=== PATIENT | male | born 1955 | race Caucasian/White ===

== ENCOUNTER → 2017-06-27 | Outpatient (CLI) | payer OTHER ==
[~2017-06-27] MED LIST: ACET-2031 PO; Aspirin PO; BIS10S PR; BONIVA PO; CELE-1 PO; CHOL200021 PO; CYC10 PO; DIA5 PO; DIOVAN/HCTZ PO; FLUO40CA76 PO; HYDR-389 PO; IBAN2.5T2 PO; LAMO100T56 PO; LOR1 PO; LOR7.5/325 PO; MAGN-40 PO; MISO100T42 PO; OXYC1TAB54 PO; OXYC5TAB65 PO; Oxycodone Hcl PO; RIV10 PO; SER50 PO; ST.1POWD PO; TRA50 PO; VALS1TAB63 PO; VALS40TA6 PO; [UNRECOGNIZED DRUG - CODE] PO; [UNRECOGNIZED DRUG - CODE] PO; [UNRECOGNIZED DRUG - CODE] PO; [UNRECOGNIZED DRUG - CODE] PO; [UNRECOGNIZED DRUG - OTHER] PO
--- NOTE | 2017-06-27 09:08 | EKG ---
FACILITY: [facility] PATIENT NAME: EDISON VALDIVIA : [id number] MR: [id number] V: [id number] EXAM DATE: ORDERING PHYSICIAN: BENNIE GILLIAM TECHNOLOGIST: BRAULIO Sanders Reason : PREOP-FOOT Blood Pressure : / mmHG Vent. Rate : 067 BPM Atrial Rate : 067 BPM P-R Int : 194 ms QRS Dur : 100 ms QT Int : 404 ms P-R-T Axes : 046 052 054 degrees QTc Int : 426 ms Normal sinus rhythm Normal ECG When compared with ECG of 24-FEB-2016 14:39, No significant change was found Confirmed by ALEJANDRINA MEADOWS ([id number]) on 06/27/2017 3:53:16 PM Referred By: MANE Confirmed By:ALEJANDRINA MEADOWS
[2017-06-27 09:35] LABS: PLATELET COUNT, AUTOMATED 211 K/uL (150-450)
== END ==
LOC: LAB 08:47
PROVIDERS: ATTEND Anesthesiology
DX: Z01.812 Encounter for preprocedural laboratory examination (principal); Z01.810 Encounter for preprocedural cardiovascular examination; E03.9 Hypothyroidism, unspecified; M79.672 Pain in left foot; T84.213A Breakdown (mechanical) of internal fixation device of bones of foot and toes, initial encounter
CPT/HCPCS: 36415; 82040; 82247; 82310; 82374; 82435; 82565; 82947; 84075; 84132; 84155; 84295; 84443; 84450; 84460; 84520; 85025; 93005

== ENCOUNTER → 2018-07-14 | Outpatient (CLI) | payer OTHER ==
[~2018-07-14] MED LIST changes: +LIO25 PO; +LOSA-51 PO; +MODA200T6 PO; +OXCA150T64 PO; +TAMS0.4C70 PO
== END ==
LOC: US 13:00
PROVIDERS: ATTEND Physician Assistant Medical
DX: R01.1 Cardiac murmur, unspecified (principal)
CPT/HCPCS: 93306

== ENCOUNTER → 2018-09-05 | Outpatient (CLI) | payer OTHER ==
--- NOTE | 2018-09-05 15:58 | RADIOLOGY IMAGING REPORT ---
[place] [facility] [place]IENT NAME: Remington Dinero : 1955 MR: [id number] V: [id number] EXAM DATE: ORDERING PHYSICIAN: VIPUL SANDOVAL TECHNOLOGIST: Location: [facility] Patient: Remington Dinero : 1955 Visit/Account:[id number] Date of Sevice: 09/05/2018 THYROID HISTORY: Left-sided thyromegaly COMPARISON: None. FINDINGS: SIZE: Mild asymmetric enlargement of the left thyroid lobe Right lobe: 4.8 x 1.5 x 1.8 cm Left lobe: 4.8 x 2.1 x 2.5 cm Isthmus: 2 mm Thyroid heterogeneity: Homogeneous. NODULES: Right lobe: * At least 2 sub-5 mm nodules. No dominant nodules identified. Left lobe: * Complex solid and cystic nodule centered within the mid left thyroid lobe measuring 3.0 x 1.6 x 2. 4 cm. Without internal vascularity within the solid components. No visualized microcatheter calcifi cation. Isthmus: * None discrete. VASCULARITY: Within normal limits. ADDITIONAL FINDINGS: None. IMPRESSION: 1. Complex left thyroid nodule measuring up to 3 cm with low or very low suspicion sonographic patte rn. Either way, this nodule meets size criteria for ultrasound-guided biopsy. REFERENCE: 2015 [place] [employer] Management Guidelines for Adult Patients with Thyroid Nodules and D ifferentiated Thyroid Cancer: The [place] [employer] Guidelines Task Force on Thyroid Nodul es and Differentiated Thyroid Cancer. SONOGRAPHIC PATTERNS: * Benign: Purely cystic nodules (no solid component); estimated risk of malignancy <1 percent; no bi opsy recommended. * Very Low Suspicion: Spongiform or partially cystic nodules without any of the sonographic features described in low, intermediate, or high suspicion patterns; estimated risk of malignancy <3 percent; consider FNA at > 2 cm (Observation without FNA is also a reasonable option). * Low Suspicion: Isoechoic or hyperechoic solid nodule, or partially cystic nodule with eccentric so lid areas, without microcalcification, irregular margin or ETE (extra-thyroidal extension), or taller than wide shape; estimated risk of malignancy 5-10 percent; recommend FNA at >1.5 cm. * Intermediate Suspicion: Hypoechoic solid nodule with smooth margins without microcalcifications, E TE (extra-thyroidal extension), or taller than wide shape; estimated risk of malignancy 10-20 percent ; recommend FNA at > 1 cm. * High Suspicion: Solid hypoechoic nodule or solid hypoechoic component of a partially cystic nodule with one or more of the following features: irregular margins (infiltrative, microlobulated), microc alcifications, taller than wide shape, rim calcifications with small extrusive soft tissue component, evidence of ETE (extra-thyroidal extension); estimated risk of malignancy >70-90 percent; recommend FNA at > 1 cm. NOTES: * Although a sonographically suspicious subcentimeter thyroid nodule without evidence of extrathyroi andrew extension or sonographically suspicious lymph nodes may be observed with close sonographic follow -up rather than pursuing immediate FNA, patient age and preference may modify decision-making. * A > 50% interval increase in nodule volume and/or development of new suspicious sonographic featur es are felt to be a valid reasons for potential re-aspiration of a nodule previously shown to have be nign FNA cytology. Report Dictated By: Michele Andrews MD at 09/05/2018 3:42 PM Report E-Signed By: Michele Andrews MD at 09/05/2018 3:53 PM WSN:[id number]
== END ==
LOC: US 00:37
PROVIDERS: ATTEND Family Medicine
DX: E04.1 Nontoxic single thyroid nodule (principal)
CPT/HCPCS: 76536